=== PATIENT | male | born 1980 | race Caucasian/White ===

== ENCOUNTER 2019-08-03 15:02 | Emergency (ER) | payer MEDICAID, SELFPAY ==
[~2019-08-03] VITALS: Ht 160 cm; Wt 65.0 kg
[2019-08-03 15:43] VITALS: BP 117/77
--- NOTE | 2019-08-03 15:53 | NUR ---
pt eloped s/p fast exam by . pt reporting he wanting to leave and not be here.
== END 2019-08-03 15:56 | disposition left against medical advice (07) ==
LOC: ED 15:43
DX: F10.129 Alcohol abuse with intoxication, unspecified (principal); Y90.0 Blood alcohol level of less than 20 mg/100 ml
CPT/HCPCS: 99283